=== PATIENT | female | born 2000 | race Caucasian/White ===

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

== ENCOUNTER 2020-04-25 17:28 | Inpatient (IN) ==
[2020-04-25 18:12] LABS: Basophils % 0.4 %; Eosinophils # 0.4 K/mcL (0.0-0.6); Eosinophils % 4.7 %; Hematocrit 40.9 % (35.3-44.9); Hemoglobin 12.9 g/dL (11.5-15.4); Immature Granulocytes % 0.1 % (0-4); Lymphocytes # 2.8 K/mcL (0.6-4.6); Lymphocytes % 33.7 %; Mean Corpuscular HGB Conc 31.5 g/dL (31.6-35.5); Mean Corpuscular Hemoglobin 28.7 pg (28.0-33.3); Mean Corpuscular Volume 90.9 fL (83.0-100.0); Mean Platelet Volume 9.6 fL (9.4-12.4); Monocytes # 0.6 K/mcL (0.0-1.3); Monocytes % 7.1 %; Neutrophils # 4.5 K/mcL (1.6-8.9); Platelet Count 353 K/mcL (140-400); Red Cell Distribution Width 13.5 % (11.5-14.5); White Blood Count 8.3 K/mcL (4.3-11.1)
[2020-04-25 18:17] LABS: Amorphous Sediment,Urine Few per hpf (None-Few); Bacteria,Urine Few per hpf (None-Few); Bilirubin,Urine Negative (Negative); Blood,Urine Negative (Negative); Clarity,Urine Turbid (Clear); Color,Urine Yellow (Yellow); Glucose,Urine (UA) Normal (Normal); Ketones,Urine Negative (Negative); Leukocyte Esterase,Urine Negative (Negative); Mucus,Urine Few per lpf (None-Few); Nitrite,Urine Negative (Negative); Protein,Urine Trace mg/dL (Neg-Trace); RBC,Urine 0-3 per hpf (0-3); Specific Gravity,Urine 1.028 (1.010-1.025); Squamous Epithelial Cell,Urine Moderate per hpf (None-Few); Urobilinogen,Urine Normal (Normal); WBC,Urine 0-3 per hpf (0-3)
[2020-04-25 18:32] LABS: Amphetamine Screen,Urine Negative ng/mL (Cutoff=1000); Barbiturate Screen,Urine Negative ng/mL (Cutoff=200); Benzodiazepines Screen,Urine Negative ng/mL (Cutoff=200); Cannabinoid Screen,Urine Positive ng/mL (Cutoff = 50); Cocaine Screen,Urine Negative ng/mL (Cutoff= 300); Opiate Screen,Urine Negative ng/mL (Cutoff=300); Phencyclidine Screen,Urine Negative ng/mL (Cutoff=25)
[2020-04-25 18:43] LABS: Acetaminophen < 10 mcg/mL (10-20); Alanine Aminotransferase 18 Units/L (7-52); Albumin 4.4 g/dL (3.5-5.7); Albumin/Globulin Ratio 1.3 (1.1-2.2); Alkaline Phosphatase 80 Units/L (34-104); Aspartate Amino Transferase 17 Units/L (13-39); BUN/Creatinine Ratio 24 (6-26); Bilirubin,Direct 0.1 mg/dL (0.0-0.2); Bilirubin,Indirect 0.2 mg/dL (0.0-1.0); Bilirubin,Total 0.3 mg/dL (0.3-1.0); Blood Urea Nitrogen 17 mg/dL (6-20); Calcium 9.3 mg/dL (8.6-10.3); Carbon Dioxide 24 mEq/L (23-29); Chloride 105 mEq/L (98-107); Chol/HDL Ratio 2.9 (0-4.9); Cholesterol 194 mg/dL (< 200); Ethanol < 10 mg/dL (Less than 10); Globulin 3.4 g/dL (2.4-3.5); Glucose 71 mg/dL (70-105); HDL Cholesterol 66 mg/dL (40-59); LDL Cholesterol,Calculated 105 mg/dL (< 100); Osmolality,Calculated 286 (280-300); Potassium 3.9 mEq/L (3.5-5.1); Salicylate < 2.5 mg/dL (15.0-30.0); Sodium 138 mEq/L (136-145); Total Protein 7.8 g/dL (6.4-8.9); Triglycerides 115 mg/dL (< 150); eGFR For African Americans > 60 (> 60); eGFR For Non-African Americans > 60 (> 60)
[2020-04-25 18:45] LABS: Thyroid Stimulating Hormone 1.449 mcIU/mL (0.340-5.600)
[2020-04-25 19:50] LABS: Estimated Average Glucose 111 mg/dl
[2020-04-25 20:17] LABS: Adenovirus Not Detected (Not Detect); Bordetella Pertussis Not Detected (Not Detect); Chlamydophila pneumoniae Not Detected (Not Detect); Coronavirus 229E Not Detected (Not Detect); Coronavirus HKU1 Not Detected (Not Detect); Coronavirus NL63 Not Detected (Not Detect); Coronavirus OC43 Not Detected (Not Detect); Human Metapneumovirus Not Detected (Not Detect); Human Rhinovirus/Enterovirus Not Detected (Not Detect); Influenza A Subtype 2009 H1 Not Detected (Not Detect); Influenza B Not Detected (Not Detect); Mycoplasma pneumoniae Not Detected (Not Detect); Parainfluenza Virus 1 Not Detected (Not Detect); Parainfluenza Virus 2 Not Detected (Not Detect); Parainfluenza Virus 3 Not Detected (Not Detect); Parainfluenza Virus 4 Not Detected (Not Detect); Respiratory Syncytial Virus Not Detected (Not Detect); SARS-CoV-2 Not Detected (Not Detect)
[2020-04-25] MEDS ORDERED: *HR* LORazepam 0.5 MG TABLET PO ONE (21:57)
[2020-04-25] MEDS ORDERED: *HR* LORazepam 2 MG/ML VIAL IM PRN (22:20)
[2020-04-25] MEDS ORDERED: Haloperidol Lactate 5 MG/ML VIAL IM PRN (22:20)
[2020-04-25] MEDS ORDERED: haloperidoL 5 MG TABLET PO PRN (22:20)
[2020-04-25] MEDS ORDERED: *HR* LORazepam 1 MG TABLET PO PRN (22:20)
[2020-04-25] MEDS ORDERED: traZODone 50 MG TABLET PO PRN (22:20)
[2020-04-25] MEDS ORDERED: MOM Conc 10 ML UD.LIQ PO PRN (22:20)
[2020-04-25] MEDS ORDERED: Acetaminophen 325 MG TABLET PO PRN (22:20)
[2020-04-25] MEDS ORDERED: Mag Hydrox/Al Hydrox/Simeth 30 ML UDC PO PRN (22:20)
[2020-04-26] MEDS: BuPROPion XL (24 HR) 150 MG TABLET PO SCH (08:03)
[2020-04-26] MEDS: hydrOXYzine pamoate 25 MG CAPSULE PO PRN ×2 (08:03→15:39)
[2020-04-26] MEDS: BLISOVI FE PO SCH (08:04)
[2020-04-26] MEDS: Nicotine 14 MG PATCH.TD24 TD SCH (17:05)
[2020-04-27] MEDS: BuPROPion XL (24 HR) 150 MG TABLET PO SCH (08:52)
[2020-04-27] MEDS: Nicotine 14 MG PATCH.TD24 TD SCH (08:53)
[2020-04-27] MEDS: BLISOVI FE PO SCH (08:53)
[2020-04-27] MEDS: hydrOXYzine pamoate 25 MG CAPSULE PO PRN ×2 (11:08→18:40)
[2020-04-28] MEDS: BuPROPion XL (24 HR) 150 MG TABLET PO SCH (08:38)
[2020-04-28] MEDS: hydrOXYzine pamoate 25 MG CAPSULE PO PRN (08:38)
[2020-04-28] MEDS: BLISOVI FE PO SCH (08:38)
[2020-04-28] MEDS: Nicotine 14 MG PATCH.TD24 TD SCH (08:39)
[2020-04-28 09:10] VITALS: BP 108/71
== END 2020-04-28 12:00 | disposition home or self-care (01) | DRG 751 ==
LOC: EMEROOARM 17:28 → 1ANU 22:00
PROVIDERS: ADMIT Psychiatry & Neurology Psychiatry; ATTEND Psychiatry & Neurology Psychiatry

== ENCOUNTER 2021-12-18 10:29 | Inpatient (IN) ==
[2021-12-18] MEDS ORDERED: Naloxone 0.4 MG/ML INJ IVP PRN (10:59)
[2021-12-18] MEDS ORDERED: Famotidine 20 MG/2 ML VIAL IVP PRN (10:59)
[2021-12-18] MEDS ORDERED: Lidocaine 1% 20 ML MDV INFILT PRN (10:59)
[2021-12-18] MEDS ORDERED: Metoclopramide 10 MG/2 ML VIAL IVP PRN (10:59)
[2021-12-18] MEDS ORDERED: Ondansetron 4 MG/2 ML VIAL IVP PRN (10:59)
[2021-12-18] MEDS ORDERED: Azithromycin 500 MG in 0.9 % Sodium Chloride 250 ML IVPB PRN (10:59)
[2021-12-18] MEDS ORDERED: *HR* Nalbuphine 10 MG/ML AMPUL IV PRN (10:59)
[2021-12-18] MEDS ORDERED: Ringers Solution, Lactated 1,000 ML IVC SCH (11:00)
[2021-12-18] MEDS ORDERED: Penicillin G Potassium 5,000,000 UNIT in 0.9 % Sodium Chloride Mini Bag 100 ML IVPB ONE (11:10)
[2021-12-18] MEDS ORDERED: EPHEDrine 50 MG/ML VIAL IVP PRN (11:11)
[2021-12-18] MEDS ORDERED: Penicillin G Potassium 2,500,000 UNIT/105 ML MLS IVPB SCH ×2 (11:15→15:00)
[2021-12-18 11:38] LABS: Basophils # 0.1 K/mcL (0.0-0.2); Basophils % 0.3 %; Eosinophils # 0.2 K/mcL (0.0-0.6); Eosinophils % 0.9 %; Hematocrit 40.1 % (35.3-44.9); Hemoglobin 13.4 g/dL (11.5-15.4); Immature Granulocytes % 0.9 % (0-4); Lymphocytes # 2.4 K/mcL (0.6-4.6); Lymphocytes % 14.3 %; Mean Corpuscular HGB Conc 33.4 g/dL (31.6-35.5); Mean Corpuscular Hemoglobin 30.7 pg (28.0-33.3); Mean Corpuscular Volume 91.8 fL (83.0-100.0); Mean Platelet Volume 11.6 fL (9.4-12.4); Monocytes # 0.8 K/mcL (0.0-1.3); Monocytes % 4.6 %; Neutrophils # 13.4 K/mcL (1.6-8.9); Platelet Count 230 K/mcL (140-400); Red Blood Count 4.37 M/mcL (3.82-4.97); Red Cell Distribution Width 14.4 % (11.5-14.5)
[2021-12-18 11:53] LABS: Amphetamine Screen,Urine Negative ng/mL (Cutoff=1000); Barbiturate Screen,Urine Negative ng/mL (Cutoff=200); Benzodiazepines Screen,Urine Negative ng/mL (Cutoff=200); Cannabinoid Screen,Urine Positive ng/mL (Cutoff = 50); Cocaine Screen,Urine Negative ng/mL (Cutoff= 300); Opiate Screen,Urine Negative ng/mL (Cutoff=300); Phencyclidine Screen,Urine Negative ng/mL (Cutoff=25)
[2021-12-18] MEDS ORDERED: Epidural Premix (fent/bupiv) 110 ML EP ONE (12:05)
[2021-12-18] MEDS ORDERED: Epidural Premix (fent/bupiv) 110 ML EP SCH (12:15)
[2021-12-18] MEDS ORDERED: Oxytocin 30 UNIT/503 ML BAG IVC ONE (15:10)
[2021-12-18] MEDS ORDERED: Lanolin 7 G OINT...G. TP PRN (18:11)
[2021-12-18] MEDS ORDERED: Acetaminophen 325 MG TABLET PO SCH (18:11)
[2021-12-18] MEDS ORDERED: Oxytocin 30 UNIT/503 ML BAG IVC SCH (18:11)
[2021-12-18] MEDS ORDERED: Ondansetron ODT 4 MG TAB.RAPDIS SL PRN (18:11)
[2021-12-18] MEDS ORDERED: Benzocaine/Menthol 56 GM AEROSOL SPRAY TP PRN (18:11)
[2021-12-18] MEDS ORDERED: OXYTOCIN/RINGERS LACTATE 10 UNIT/166.6 ML BAG IVC ONE (18:11)
[2021-12-18] MEDS ORDERED: Measles/Mumps/Rubella Vacc 0.5 ML VIAL SQ PRN (18:11)
[2021-12-18 19:11] VITALS: O2SAT 100
[2021-12-18] MEDS: Ibuprofen 600 MG TABLET PO SCH (19:29)
[2021-12-19] MEDS: Ibuprofen 600 MG TABLET PO SCH (03:04)
[2021-12-19 03:56] LABS: Basophils % 0.2 %; Eosinophils # 0.2 K/mcL (0.0-0.6); Eosinophils % 1.2 %; Hemoglobin 11.9 g/dL (11.5-15.4); Immature Granulocytes % 1.1 % (0-4); Lymphocytes # 2.4 K/mcL (0.6-4.6); Lymphocytes % 16.4 %; Mean Corpuscular Volume 94.1 fL (83.0-100.0); Mean Platelet Volume 10.4 fL (9.4-12.4); Monocytes % 6.6 %; Neutrophils # 10.9 K/mcL (1.6-8.9); Platelet Count 254 K/mcL (140-400); Red Blood Count 3.72 M/mcL (3.82-4.97); Red Cell Distribution Width 14.2 % (11.5-14.5); Segmented Neutrophils % 74.5 %; White Blood Count 14.6 K/mcL (4.3-11.1)
[2021-12-19 07:17] VITALS: BP 100/58; PULSE 92; TEMP 97.9
[2021-12-19] MEDS ORDERED: NON-FORMULARY MEDICATION 1 EACH EACH (Prenat 115/Iron Fum/Folic/Dss [Prenatal 19 Tablet] 1 PO SCH (09:00)
[2021-12-19] MEDS ORDERED: Prenatal Vit/FA 1 EACH TABLET PO SCH (09:00)
[2021-12-19] MEDS ORDERED: Rho Immune Globulin 1,500 UNIT SYRINGE IM ONE (11:05)
== END 2021-12-19 16:40 | disposition home or self-care (01) | DRG 806 ==
LOC: 1NENULAB → 1NENUOBS 18:10
PROVIDERS: ADMIT Registered Nurse; ATTEND Registered Nurse